=== PATIENT | female | born 1970 | race Caucasian/White ===

== ENCOUNTER → 2019-02-15 | Outpatient (CLI) | payer OTHER ==
[2019-02-15 15:07] LABS: BASOPHILS ABSOLUTE AUTO 0.06 K/mm3 (0.00-0.23); BASOPHILS PERCENT AUTO 1 % (0-2); EOSINOPHILS ABSOLUTE AUTO 0.08 K/mm3 (0.00-0.68); EOSINOPHILS PERCENT AUTO 1 % (0-6); Hematocrit 38.2 % (33.0-51.0); Hemoglobin 13.2 g/dL (11.5-16.0); IMMATURE GRAN ABSOLUTE AUTO 0.02 K/mm3 (0.00-0.10); IMMATURE GRAN PERCENT AUTO 0 % (0-1); LYMPHOCYTES ABSOLUTE AUTO 1.98 K/mm3 (0.84-5.20); LYMPHOCYTES PERCENT AUTO 33 % (21-46); MONOCYTES ABSOLUTE AUTO 0.44 K/mm3 (0.16-1.47); MONOCYTES PERCENT AUTO 7 % (4-13); Mean Corpuscular HGB 31.3 pg (26.0-34.0); Mean Corpuscular HGB Conc 34.6 g/dL (31.5-36.5); Mean Corpuscular Volume 91 fL (80-100); Mean Platelet Volume 10.1 fL (9.1-12.4); NEUTROPHILS ABSOLUTE AUTO 3.34 K/mm3 (1.96-9.15); NEUTROPHILS PERCENT AUTO 57 % (41-73); Platelet Count 201 K/mm3 (150-400); Red Blood Cell Count 4.22 M/mm3 (3.80-5.20); White Blood Cell Count 5.92 K/mm3 (4.00-11.30)
[2019-02-15 15:15] LABS: Alanine Aminotransfer (ALT/SGP 14 U/L (12-78); Albumin, Blood 3.6 g/dL (3.4-5.0); Alk Phos 46 U/L (40-126); Anion Gap 11 mmol/L (6-16); Aspartate Aminotrans (AST/SGOT 20 U/L (12-37); Bilirubin, Total 0.6 mg/dL (0.1-1.0); Blood Urea Nitrogen 13 mg/dL (8-24); Bun/Creatinine Ratio 13.4 (12.0-20.0); CO2, Blood 24 mmol/L (21-32); Calcium, Blood 8.8 mg/dL (8.5-10.1); Chloride, Blood 105 mmol/L (98-108); Creatinine, Blood 0.97 mg/dL (0.40-1.00); Globulin, Blood 3.6 g/dL (2.2-4.0); Glomerular Filtration Rate >60 (60-); Glucose, Blood 113 mg/dL (70-99); Potassium, Blood 3.5 mmol/L (3.5-5.5); Sodium, Blood 140 mmol/L (136-145); Total Protein, Blood 7.2 g/dL (6.4-8.2)
== END | disposition home or self-care (01) ==
LOC: LAB EV 15:01 → LAB SHORT 15:01
PROVIDERS: Physician Assistant
DX: M32.9 Systemic lupus erythematosus, unspecified (principal)
CPT/HCPCS: 80053; 85025; 85651; 86140

== ENCOUNTER → 2019-03-05 | Outpatient (CLI) | payer OTHER | END | disposition home or self-care (01) | LOC: LAB SHORT 14:37 → LAB EV 14:37 | DX: R82.90 Unspecified abnormal findings in urine (principal) | CPT/HCPCS: 87086 ==

== ENCOUNTER → 2019-11-22 | Outpatient (CLI) | payer OTHER ==
[2019-11-23 16:10] LABS: HPV 16 Negative (Negative); HPV 18 Negative (Negative); HPV OTHER HR TYPES Negative (Negative)
== END | disposition home or self-care (01) ==
LOC: LAB 14:57 → LAB SHORT 14:57
PROVIDERS: Obstetrics & Gynecology
DX: Z01.419 Encounter for gynecological examination (general) (routine) without abnormal findings (principal)
CPT/HCPCS: 87624; G0123

== ENCOUNTER 2020-07-09 13:47 | Emergency (ER) | payer OTHER ==
[~2020-07-09] VITALS: Ht 162.6 cm; Wt 61.2 kg
[2020-07-09] MEDS ORDERED: IMITREX100 MG PO (14:15)
[2020-07-09] MEDS ORDERED: [UNRECOGNIZED DRUG - OTHER] PO (14:16)
[2020-07-09 14:42] LABS: BASOPHILS ABSOLUTE AUTO 0.06 K/mm3 (0.00-0.23); BASOPHILS PERCENT AUTO 1 % (0-2); EOSINOPHILS ABSOLUTE AUTO 0.13 K/mm3 (0.00-0.68); EOSINOPHILS PERCENT AUTO 2 % (0-6); Hematocrit 44.6 % (33.0-51.0); Hemoglobin 15.5 g/dL (11.5-16.0); IMMATURE GRAN ABSOLUTE AUTO 0.02 K/mm3 (0.00-0.10); IMMATURE GRAN PERCENT AUTO 0 % (0-1); LYMPHOCYTES ABSOLUTE AUTO 2.65 K/mm3 (0.84-5.20); LYMPHOCYTES PERCENT AUTO 34 % (21-46); MONOCYTES ABSOLUTE AUTO 0.52 K/mm3 (0.16-1.47); MONOCYTES PERCENT AUTO 7 % (4-13); Mean Corpuscular HGB 31.3 pg (26.0-34.0); Mean Corpuscular HGB Conc 34.8 g/dL (31.5-36.5); Mean Corpuscular Volume 90 fL (80-100); Mean Platelet Volume 10.1 fL (9.1-12.4); NEUTROPHILS ABSOLUTE AUTO 4.45 K/mm3 (1.96-9.15); NEUTROPHILS PERCENT AUTO 57 % (41-73); Platelet Count 230 K/mm3 (150-400); RDW Coefficient Variation 12.6 % (11.7-14.2); RDW Standard Deviation 41.5 fL (35.1-46.3); Red Blood Cell Count 4.96 M/mm3 (3.80-5.20); White Blood Cell Count 7.83 K/mm3 (4.00-11.30)
[2020-07-09 15:09] LABS: Alanine Aminotransfer (ALT/SGP 20 U/L (12-78); Albumin, Blood 3.9 g/dL (3.4-5.0); Albumin/Globulin Ratio 0.9 (0.8-1.8); Alk Phos 55 U/L (50-136); Anion Gap 9 mmol/L (6-16); Aspartate Aminotrans (AST/SGOT 16 U/L (12-37); Bilirubin, Total 0.6 mg/dL (0.1-1.0); Blood Urea Nitrogen 14 mg/dL (8-24); Bun/Creatinine Ratio 16.1 (12.0-20.0); CO2, Blood 23 mmol/L (21-32); Calcium, Blood 9.4 mg/dL (8.5-10.1); Chloride, Blood 109 mmol/L (98-108); Creatinine, Blood 0.87 mg/dL (0.40-1.00); Globulin, Blood 4.2 g/dL (2.2-4.0); Glomerular Filtration Rate >60 (60-); Glucose, Blood 93 mg/dL (70-99); Potassium, Blood 3.4 mmol/L (3.5-5.5); Sodium, Blood 141 mmol/L (136-145); Total Protein, Blood 8.1 g/dL (6.4-8.2)
[2020-07-09 17:39] LABS: Source, Urine Clean Catch
[2020-07-09] MEDS ORDERED: ERGO400 (17:52)
[2020-07-09] MEDS ORDERED: Naltrexone HCl50 MG PO (17:52)
[2020-07-09 17:53] LABS: Appearance, Urine Clear (Clear); Bilirubin, Urine Neg (Neg); Blood, Urine 1+ (Neg); Color, Urine Yellow (P-Yellow); Glucose Qualitative, Urine Neg (Neg); Ketones, Urine Neg (Neg); Leukocyte Esterase, Urine Neg (Neg); Nitrite, Urine Neg (Neg); Protein, Urine Neg (Neg); Urobilinogen, Urine NORM (Normal)
[2020-07-09 18:17] LABS: Squamous Epithelial Cells Rare /hpf (Few); White Blood Cells, Urine 0-2 /hpf (0-5)
[2020-07-09 18:18] LABS: Amorphous Light (0-Heavy); Bacteria Rare /hpf; Mucus Mod (0-Heavy)
== END 2020-07-09 18:47 | disposition home or self-care (01) ==
LOC: ER 13:47
PROVIDERS: Physician Assistant
DX: R10.9 Unspecified abdominal pain (principal); Z79.899 Other long term (current) drug therapy
CPT/HCPCS: 36415; 76770; 80053; 81001; 81025; 83690; 85025; 99284-25

== ENCOUNTER 2022-03-27 01:52 | Day surgery (SDC) | payer OTHER ==
[~2022-03-27 01:52] MED LIST: ERGO400; IMITREX100 MG PO; Naltrexone HCl50 MG PO; [UNRECOGNIZED DRUG - OTHER] PO
[2022-03-27 08:58] LABS: BASOPHILS ABSOLUTE AUTO 0.06 K/mm3 (0.00-0.23); BASOPHILS PERCENT AUTO 1 % (0-2); EOSINOPHILS ABSOLUTE AUTO 0.21 K/mm3 (0.00-0.68); EOSINOPHILS PERCENT AUTO 3 % (0-6); Hematocrit 39.5 % (33.0-51.0); Hemoglobin 14.1 g/dL (11.5-16.0); IMMATURE GRAN ABSOLUTE AUTO 0.02 K/mm3 (0.00-0.10); IMMATURE GRAN PERCENT AUTO 0 % (0-1); LYMPHOCYTES ABSOLUTE AUTO 1.87 K/mm3 (0.84-5.20); LYMPHOCYTES PERCENT AUTO 25 % (21-46); MONOCYTES ABSOLUTE AUTO 0.58 K/mm3 (0.16-1.47); MONOCYTES PERCENT AUTO 8 % (4-13); Mean Corpuscular HGB 31.6 pg (26.0-34.0); Mean Corpuscular HGB Conc 35.7 g/dL (31.5-36.5); Mean Corpuscular Volume 89 fL (80-100); Mean Platelet Volume 9.5 fL (9.1-12.4); NEUTROPHILS PERCENT AUTO 63 % (41-73); Platelet Count 185 K/mm3 (150-400); RDW Coefficient Variation 12.4 % (11.7-14.2); RDW Standard Deviation 40.5 fL (35.1-46.3); Red Blood Cell Count 4.46 M/mm3 (3.80-5.20); White Blood Cell Count 7.44 K/mm3 (4.00-11.30)
[2022-03-27 09:35] LABS: Progesterone 2.63 ng/mL
[2022-03-27 09:36] LABS: Albumin, Blood 3.3 g/dL (3.4-5.0); Albumin/Globulin Ratio 0.9 (0.8-1.8); Bilirubin, Total 0.7 mg/dL (0.1-1.0); Bun/Creatinine Ratio 14.3 (12.0-20.0); Calcium, Blood 9.1 mg/dL (8.5-10.1); Creatinine, Blood 0.91 mg/dL (0.40-1.00); Globulin, Blood 3.7 g/dL (2.2-4.0); Potassium, Blood 3.6 mmol/L (3.5-5.5)
== END 2022-03-27 08:46 | disposition home or self-care (01) ==
LOC: ATC 01:52
PROVIDERS: Naturopath
DX: G43.909 Migraine, unspecified, not intractable, without status migrainosus (principal); R53.82 Chronic fatigue, unspecified; A44.9 Bartonellosis, unspecified; M32.10 Systemic lupus erythematosus, organ or system involvement unspecified; I10 Essential (primary) hypertension; J45.909 Unspecified asthma, uncomplicated; Z88.0 Allergy status to penicillin; Z88.2 Allergy status to sulfonamides; Z91.018 Allergy to other foods; Z91.048 Other nonmedicinal substance allergy status
CPT/HCPCS: 80053; 84144; 85025

== ENCOUNTER 2022-04-03 01:20 | Day surgery (SDC) | payer OTHER | END 2022-04-03 08:37 | disposition home or self-care (01) | LOC: ATC 01:20 | DX: R53.82 Chronic fatigue, unspecified (principal); A44.9 Bartonellosis, unspecified; A69.20 Lyme disease, unspecified; M32.10 Systemic lupus erythematosus, organ or system involvement unspecified; R79.0 Abnormal level of blood mineral; I10 Essential (primary) hypertension; Z88.0 Allergy status to penicillin; Z88.2 Allergy status to sulfonamides; Z88.8 Allergy status to other drugs, medicaments and biological substances; Z91.018 Allergy to other foods | CPT/HCPCS: 36592; 82525; 84630 ==

== ENCOUNTER 2022-04-10 00:33 | Day surgery (SDC) | payer OTHER ==
[2022-04-10 09:09] LABS: BASOPHILS ABSOLUTE AUTO 0.07 K/mm3 (0.00-0.23); BASOPHILS PERCENT AUTO 1 % (0-2); EOSINOPHILS ABSOLUTE AUTO 0.26 K/mm3 (0.00-0.68); EOSINOPHILS PERCENT AUTO 4 % (0-6); Hematocrit 37.8 % (33.0-51.0); Hemoglobin 13.4 g/dL (11.5-16.0); IMMATURE GRAN ABSOLUTE AUTO 0.02 K/mm3 (0.00-0.10); IMMATURE GRAN PERCENT AUTO 0 % (0-1); LYMPHOCYTES ABSOLUTE AUTO 1.76 K/mm3 (0.84-5.20); LYMPHOCYTES PERCENT AUTO 28 % (21-46); MONOCYTES ABSOLUTE AUTO 0.59 K/mm3 (0.16-1.47); MONOCYTES PERCENT AUTO 10 % (4-13); Mean Corpuscular HGB 31.3 pg (26.0-34.0); Mean Corpuscular HGB Conc 35.4 g/dL (31.5-36.5); Mean Corpuscular Volume 88 fL (80-100); Mean Platelet Volume 9.6 fL (9.1-12.4); NEUTROPHILS ABSOLUTE AUTO 3.51 K/mm3 (1.96-9.15); NEUTROPHILS PERCENT AUTO 57 % (41-73); Platelet Count 211 K/mm3 (150-400); RDW Coefficient Variation 12.3 % (11.7-14.2); Red Blood Cell Count 4.28 M/mm3 (3.80-5.20); White Blood Cell Count 6.21 K/mm3 (4.00-11.30)
[2022-04-10 09:29] LABS: Albumin, Blood 3.2 g/dL (3.4-5.0); Albumin/Globulin Ratio 0.8 (0.8-1.8); Bilirubin, Total 0.4 mg/dL (0.1-1.0); Bun/Creatinine Ratio 12.5 (12.0-20.0); Calcium, Blood 9.1 mg/dL (8.5-10.1); Creatinine, Blood 0.8 mg/dL (0.40-1.00); Globulin, Blood 3.8 g/dL (2.2-4.0); Potassium, Blood 3.4 mmol/L (3.5-5.5)
--- NOTE | 2022-04-10 09:35 | NUR ---
LAB RESULTS FROM TODAY FAXED TO DR. TANNER'S OFFICE.
== END 2022-04-10 08:45 | disposition home or self-care (01) ==
LOC: ATC 00:33
PROVIDERS: Naturopath
DX: Z95.828 Presence of other vascular implants and grafts (principal)
CPT/HCPCS: 80053; 85025

== ENCOUNTER 2022-04-17 00:21 | Day surgery (SDC) | payer OTHER ==
[2022-04-17] MEDS ORDERED: ELIQUIS5 M2 PO (15:35)
[2022-04-17] MEDS ORDERED: Norco 5-325 Ta1 EACH PO (15:35)
== END 2022-04-17 16:25 | disposition home or self-care (01) ==
LOC: ATC 00:21
DX: R79.0 Abnormal level of blood mineral (principal); Z95.828 Presence of other vascular implants and grafts
CPT/HCPCS: 99211

== ENCOUNTER 2022-05-07 00:47 | Day surgery (SDC) | payer OTHER ==
[~2022-05-07 00:47] MED LIST changes: +ELIQUIS5 M2 PO; +Norco 5-325 Ta1 EACH PO
[2022-05-07 12:04] LABS: BASOPHILS ABSOLUTE AUTO 0.05 K/mm3 (0.00-0.23); BASOPHILS PERCENT AUTO 1 % (0-2); EOSINOPHILS ABSOLUTE AUTO 0.29 K/mm3 (0.00-0.68); EOSINOPHILS PERCENT AUTO 6 % (0-6); Hematocrit 39.6 % (33.0-51.0); Hemoglobin 13.6 g/dL (11.5-16.0); IMMATURE GRAN ABSOLUTE AUTO 0.02 K/mm3 (0.00-0.10); IMMATURE GRAN PERCENT AUTO 0 % (0-1); LYMPHOCYTES ABSOLUTE AUTO 1.67 K/mm3 (0.84-5.20); LYMPHOCYTES PERCENT AUTO 33 % (21-46); MONOCYTES ABSOLUTE AUTO 0.65 K/mm3 (0.16-1.47); MONOCYTES PERCENT AUTO 13 % (4-13); Mean Corpuscular HGB 29.9 pg (26.0-34.0); Mean Corpuscular HGB Conc 34.3 g/dL (31.5-36.5); Mean Corpuscular Volume 87 fL (80-100); Mean Platelet Volume 9.3 fL (9.1-12.4); NEUTROPHILS ABSOLUTE AUTO 2.46 K/mm3 (1.96-9.15); NEUTROPHILS PERCENT AUTO 48 % (41-73); Platelet Count 237 K/mm3 (150-400); RDW Coefficient Variation 13.2 % (11.7-14.2); RDW Standard Deviation 41.2 fL (35.1-46.3); Red Blood Cell Count 4.55 M/mm3 (3.80-5.20); White Blood Cell Count 5.14 K/mm3 (4.00-11.30)
[2022-05-07 12:18] LABS: Albumin, Blood 3.6 g/dL (3.4-5.0); Albumin/Globulin Ratio 0.9 (0.8-1.8); Bilirubin, Total 0.6 mg/dL (0.1-1.0); Bun/Creatinine Ratio 13.8 (12.0-20.0); Calcium, Blood 9.5 mg/dL (8.5-10.1); Creatinine, Blood 0.72 mg/dL (0.40-1.00); Globulin, Blood 3.9 g/dL (2.2-4.0); Total Protein, Blood 7.5 g/dL (6.4-8.2)
== END 2022-05-07 11:32 | disposition home or self-care (01) ==
LOC: ATC 00:47
PROVIDERS: Naturopath
DX: A69.20 Lyme disease, unspecified (principal); M32.10 Systemic lupus erythematosus, organ or system involvement unspecified; A44.9 Bartonellosis, unspecified; R53.82 Chronic fatigue, unspecified; Z95.828 Presence of other vascular implants and grafts; Z88.5 Allergy status to narcotic agent; Z88.0 Allergy status to penicillin; Z88.2 Allergy status to sulfonamides
CPT/HCPCS: 36592; 80053; 85025

== ENCOUNTER 2022-05-13 02:04 | Day surgery (SDC) | payer OTHER | END 2022-05-13 14:32 | disposition home or self-care (01) | LOC: ATC 02:04 | DX: A69.20 Lyme disease, unspecified (principal); A44.9 Bartonellosis, unspecified; M32.10 Systemic lupus erythematosus, organ or system involvement unspecified; R53.82 Chronic fatigue, unspecified; Z91.013 Allergy to seafood; Z88.2 Allergy status to sulfonamides; Z91.048 Other nonmedicinal substance allergy status | CPT/HCPCS: 99211 ==

== ENCOUNTER 2022-05-21 02:58 | Day surgery (SDC) | payer OTHER ==
[2022-05-21 11:42] LABS: Hematocrit 37.9 % (33.0-51.0); Hemoglobin 12.8 g/dL (11.5-16.0); Mean Corpuscular HGB 29.4 pg (26.0-34.0); Mean Corpuscular HGB Conc 33.8 g/dL (31.5-36.5); Mean Corpuscular Volume 87 fL (80-100); Mean Platelet Volume 9.2 fL (9.1-12.4); Platelet Count 206 K/mm3 (150-400); RDW Coefficient Variation 13.2 % (11.7-14.2); RDW Standard Deviation 42.5 fL (35.1-46.3); Red Blood Cell Count 4.35 M/mm3 (3.80-5.20)
[2022-05-21 12:51] LABS: Albumin, Blood 3.5 g/dL (3.4-5.0); Albumin/Globulin Ratio 0.9 (0.8-1.8); Bilirubin, Total 0.7 mg/dL (0.1-1.0); Calcium, Blood 9.4 mg/dL (8.5-10.1); Creatinine, Blood 0.74 mg/dL (0.40-1.00); Globulin, Blood 3.8 g/dL (2.2-4.0); Potassium, Blood 3.8 mmol/L (3.5-5.5); Total Protein, Blood 7.3 g/dL (6.4-8.2)
[2022-05-21 13:29] LABS: BAND PERCENT MAN 2 % (0-8); BASOPHILS ABSOLUTE MAN 0.09 K/mm3 (0.00-0.23); BASOPHILS PERCENT MAN 2 % (0-2); EOSINOPHILS ABSOLUTE MAN 0.18 K/mm3 (0.00-0.68); EOSINOPHILS PERCENT MAN 4 % (0-6); LYMPHOCYTES ABSOLUTE MAN 1.78 K/mm3 (0.84-5.20); LYMPHOCYTES PERCENT MAN 38 % (21-46); MONOCYTES ABSOLUTE MAN 0.47 K/mm3 (0.16-1.47); MONOCYTES PERCENT MAN 10 % (4-13); NEUTROPHILS ABSOLUTE MAN 2.16 K/mm3 (1.96-9.15); SEG NEUTROPHILS PERCENT MAN 44 % (41-73); TOTAL CELLS COUNTED 100
== END 2022-05-21 11:25 | disposition home or self-care (01) ==
LOC: ATC 02:58
PROVIDERS: Naturopath
DX: A69.20 Lyme disease, unspecified (principal); A44.9 Bartonellosis, unspecified; R53.82 Chronic fatigue, unspecified; M32.10 Systemic lupus erythematosus, organ or system involvement unspecified
CPT/HCPCS: 36592; 80053; 85025

== ENCOUNTER 2022-05-25 00:21 | Day surgery (SDC) | payer OTHER | END 2022-05-25 09:46 | disposition home or self-care (01) | LOC: ATC 00:21 | DX: K52.832 Lymphocytic colitis (principal); M32.10 Systemic lupus erythematosus, organ or system involvement unspecified; G43.909 Migraine, unspecified, not intractable, without status migrainosus; I95.1 Orthostatic hypotension; A44.9 Bartonellosis, unspecified | CPT/HCPCS: 99211 ==

== ENCOUNTER → 2022-07-10 | Outpatient (CLI) | payer OTHER | END | disposition home or self-care (01) | LOC: LAB SHORT 16:15 → LAB 16:15 → LAB FUT 07-08 10:35 | PROVIDERS: Naturopath | DX: M32.10 Systemic lupus erythematosus, organ or system involvement unspecified (principal); I95.1 Orthostatic hypotension; E16.1 Other hypoglycemia; R60.9 Edema, unspecified; R53.82 Chronic fatigue, unspecified | CPT/HCPCS: 81050; 82530 ==

== ENCOUNTER 2023-08-20 06:08 | Day surgery (SDC) | payer OTHER ==
[~2023-08-20] VITALS: Ht 162.6 cm; Wt 69.3 kg
[~2023-08-20 06:08] MED LIST changes: +Lactated Ringer's 1,000 ML IV ONE
[2023-08-20] MEDS ORDERED: LYLLANA1 EAC4 (06:52)
[2023-08-20] MEDS ORDERED: LYLLANA1 EAC4 TD (06:52)
[2023-08-20] MEDS ORDERED: ZYRTEC (06:55)
[2023-08-20] MEDS ORDERED: PROG100 PO (06:56)
[2023-08-20] MEDS ORDERED: TYLENOL (06:58)
[2023-08-20] MEDS ORDERED: NYSTATIN500000 UNI (06:59)
[2023-08-20] MEDS ORDERED: KETOTIFEN (06:59)
[2023-08-20] MEDS ORDERED: [UNRECOGNIZED DRUG - OTHER] (07:00)
[2023-08-20] MEDS ORDERED: propofoL 20 ML IV ONE (07:11)
[2023-08-20] MEDS ORDERED: FentaNYL Citrate 50 MCG/ML 2 ML Injection ONE ×2 (07:11→09:02)
[2023-08-20] MEDS ORDERED: Lactated Ringer's 1,000 ML IV ONE (07:13)
[2023-08-20] MEDS ORDERED: CeFAZolin Sodium 2,000 MG VIAL ONE (07:14)
[2023-08-20] MEDS ORDERED: NS 0 ML IV ONE (07:15)
[2023-08-20] MEDS ORDERED: EPINEPhrine HCl 1 MG/ML 1ML Amp ONE (07:16)
[2023-08-20] MEDS ORDERED: Ropivacaine 0.5% HCl/Pf 5 MG/ML 20ML VIAL ONE (07:18)
[2023-08-20] MEDS ORDERED: Clindamycin 900mg in D5W 50ML 50 ML IV ONE (07:28)
--- NOTE | 2023-08-20 07:41 | NUR ---
08/20/23 0741 Yeni Flores PATIENT REPORTED SEVERE ANGIOEDEMA IN REACTION TO CEFTRIAXONE SO ANTIBIOTIC CHANGED TO CLINDAMYCIN [address] VILLAREAL AND DR CAMACHO
[2023-08-20] MEDS ORDERED: Dexamethasone Sod Phos 10 MG/ML 1ML VIAL ONE (07:47)
[2023-08-20] MEDS ORDERED: HYDROmorphone HCl/Pf 1MG SYR ONE ×3 (07:59→10:31)
[2023-08-20] MEDS ORDERED: EPINEPhrine HCl 1 MG/ML 1ML Amp XX ONE ×2 (08:20→08:21)
[2023-08-20] MEDS ORDERED: Ondansetron HCl 2 MG / ML 2ML Vial ONE (08:21)
--- NOTE | 2023-08-20 08:22 | NUR ---
08/20/23 0822 Mirela Montes De Oca 1MG OF EPI ADDED TO FIRST BAG OF LR USED FOR JOINT IRRIGATION. 0.1ML OF EPI 1MG/ML ADDED TO ROPIVICAINE 0.5% TO CREATE A LOCAL SOLUTION OF ROPIVICAINE 0.5% WITH EPI 1:200,000.
[2023-08-20] MEDS ORDERED: OxyCODONE HCL 5 MG TAB ONE (09:53)
--- NOTE | 2023-08-20 10:07 | NUR ---
08/20/23 Suma Crum PT IN RECLINER WITH AT BEDSIDE. REPORTS PAIN MUCH MORE TOLERABLE. DRINKING WATER AND EATING SALTINE CRACKERS. DENIES N/V. OXYCODONE 5MG PO X1 GIVEN. CURRENT PAIN IN R HIP 7/10 AND 5/10 IN R KNEE WHICH PATIENT STATES IS ACTUALLY "TOLERABLE" FOR HER BUT WOULD LIKE TO GET PAIN DOWN TO AT LEAST 5/10 PRIOR TO DISCHARGE.
[2023-08-20 11:20] VITALS: BP 117/63
== END 2023-08-20 11:55 | disposition home or self-care (01) ==
LOC: ORSCSDS 06:08
PROVIDERS: Orthopaedic Surgery
PROC: 0SQC4ZZ Repair Right Knee Joint, Percutaneous Endoscopic Approach (ICD-10-PCS; principal; 2023-08-20 07:30)
PROC: 0SBC4ZZ Excision of Right Knee Joint, Percutaneous Endoscopic Approach (ICD-10-PCS; principal; 2023-08-20 07:30)
DX: S83.231A Complex tear of medial meniscus, current injury, right knee, initial encounter (principal); M65.9 Synovitis and tenosynovitis, unspecified; D17.23 Benign lipomatous neoplasm of skin and subcutaneous tissue of right leg; Z79.899 Other long term (current) drug therapy; E03.9 Hypothyroidism, unspecified
CPT/HCPCS: A9270; C1713; J0171; J0690; J1100; J1170; J2405; J2704; J2795; J3010; J7120

== ENCOUNTER → 2024-06-01 | Outpatient (CLI) | payer OTHER ==
[~2024-06-01] MED LIST changes: +KETOTIFEN; +LYLLANA1 EAC4; +LYLLANA1 EAC4 TD; -Lactated Ringer's 1,000 ML IV ONE; +NYSTATIN500000 UNI; +PROG100 PO; +TYLENOL; +ZYRTEC; +[UNRECOGNIZED DRUG - OTHER]
[2024-06-01 14:47] LABS: BASOPHILS ABSOLUTE AUTO 0.05 K/mm3 (0.00-0.23); BASOPHILS PERCENT AUTO 1 % (0-2); EOSINOPHILS ABSOLUTE AUTO 0.16 K/mm3 (0.00-0.68); EOSINOPHILS PERCENT AUTO 2 % (0-6); Hematocrit 43.3 % (33.0-51.0); Hemoglobin 14.9 g/dL (11.5-16.0); IMMATURE GRAN ABSOLUTE AUTO 0.02 K/mm3 (0.00-0.10); IMMATURE GRAN PERCENT AUTO 0 % (0-1); LYMPHOCYTES ABSOLUTE AUTO 2.81 K/mm3 (0.84-5.20); LYMPHOCYTES PERCENT AUTO 42 % (21-46); MONOCYTES ABSOLUTE AUTO 0.55 K/mm3 (0.16-1.47); MONOCYTES PERCENT AUTO 8 % (4-13); Mean Corpuscular HGB 30.2 pg (26.0-34.0); Mean Corpuscular HGB Conc 34.4 g/dL (31.5-36.5); Mean Corpuscular Volume 88 fL (80-100); Mean Platelet Volume 9.8 fL (9.1-12.4); NEUTROPHILS ABSOLUTE AUTO 3.06 K/mm3 (1.96-9.15); NEUTROPHILS PERCENT AUTO 46 % (41-73); Platelet Count 232 K/mm3 (150-400); RDW Coefficient Variation 13.8 % (11.7-14.2); RDW Standard Deviation 44.3 fL (35.1-46.3); Red Blood Cell Count 4.93 M/mm3 (3.80-5.20); White Blood Cell Count 6.65 K/mm3 (4.00-11.30)
[2024-06-01 14:57] LABS: Albumin, Blood 4.5 g/dL (3.4-5.0); Albumin/Globulin Ratio 1.2 (0.8-1.8); Bun/Creatinine Ratio 15.5 (12.0-20.0); Calcium, Blood 10.1 mg/dL (8.5-10.1); Creatinine, Blood 1.03 mg/dL (0.40-1.00); Globulin, Blood 3.8 g/dL (2.2-4.0); Potassium, Blood 3.7 mmol/L (3.5-5.5); Total Protein, Blood 8.3 g/dL (6.4-8.2)
== END ==
LOC: LAB 14:43 → LAB SHORT 14:43
PROVIDERS: Family Medicine
DX: R07.89 Other chest pain (principal)
CPT/HCPCS: 80053; 85025; 85379

== ENCOUNTER → 2024-07-03 | Outpatient (CLI) | payer OTHER ==
[2024-07-03 12:23] LABS: Bun/Creatinine Ratio 14.3 (12.0-20.0); Calcium, Blood 9.3 mg/dL (8.5-10.1); Creatinine, Blood 0.91 mg/dL (0.40-1.00); Potassium, Blood 3.6 mmol/L (3.5-5.5)
== END ==
LOC: LAB SHORT 12:14 → LAB 12:14
PROVIDERS: Family Medicine
DX: Z86.39 Personal history of other endocrine, nutritional and metabolic disease (principal)
CPT/HCPCS: 80048